=== PATIENT | female | born 1965 | race African-American/Black ===

== ENCOUNTER 2016-07-21 01:37 | Emergency (ER) | payer SELFPAY ==
[2016-07-21] MEDS ORDERED: ONDANSETRON HCL INJ/PF 4 MG/2 ML SDV PO ONE (02:44)
[2016-07-21] MEDS ORDERED: ONDANSETRON ODT 4 MG TAB (6 TAB/DSPK) PO PRN (02:54)
[2016-07-21] MEDS ORDERED: ONDANSETRON 4 MG TAB.RAPDIS ONE (02:54)
[2016-07-21 03:14] LABS: HEMATOCRIT 30.1 % (36.0-47.0); MEAN CORPUSCULAR HEMOGLOBIN 12.7 pg (27.0-33.4); MEAN CORPUSCULAR HGB CONC 25.7 g/dL (32.0-36.0); RED BLOOD COUNT 6.05 10^6/uL (3.72-5.28); RED CELL DISTRIBUTION WIDTH 25.1 % (11.5-14.0); WHITE BLOOD COUNT 16.2 10^3/uL (4.0-10.5)
[2016-07-21 03:22] LABS: ALANINE AMINOTRANSFERASE 25 U/L (9-52); ALBUMIN 4.5 g/dL (3.5-5.0); ALKALINE PHOSPHATASE 77 U/L (38-126); ANION GAP 15 (5-19); ASPARTATE AMINO TRANSFERASE 26 U/L (14-36); BILIRUBIN,TOTAL 0.5 mg/dL (0.2-1.3); BLOOD UREA NITROGEN 16 mg/dL (7-20); CALCIUM 10.1 mg/dL (8.4-10.2); CARBON DIOXIDE 24 mmol/L (22-30); CHLORIDE 98 mmol/L (98-107); CREATININE RESULT 1.05 mg/dL (0.52-1.25); GLUCOSE 122 mg/dL (75-110); LIPASE 61.8 U/L (23-300); POTASSIUM 3.9 mmol/L (3.6-5.0); SODIUM 137.3 mmol/L (137-145); TOTAL PROTEIN 8.6 g/dL (6.3-8.2)
[2016-07-21 03:36] LABS: MEAN CORPUSCULAR VOLUME 50 fl (80-97)
[2016-07-21 03:45] LABS: HEMOGLOBIN 7.7 g/dL (12.0-15.5)
[2016-07-21 03:49] LABS: BASOPHILS % (MANUAL) 0 % (0-2); EOSINOPHILS % (MANUAL) 2 % (0-6); LYMPHOCYTES % (MANUAL) 11 % (13-45); TOTAL CELLS COUNTED 100
[2016-07-21 03:52] LABS: ANISOCYTOSIS 3+; HYPOCHROMASIA 3+; MICROCYTOSIS 4+; OVALOCYTES 2+; POIKILOCYTOSIS 2+; POLYCHROMASIA 1+; SCHISTOCYTES SLIGHT; TEAR DROP CELLS 1+
[2016-07-21] MEDS ORDERED: ONDANSETRON HCL INJ/PF 4 MG/2 ML SDV IV ONE (04:31)
[2016-07-21] MEDS ORDERED: NORMAL SALINE 1000 ML 1,000 ML IV ONE (04:31)
[2016-07-21] MEDS ORDERED: MORPHINE SULFATE 10 MG/ML INJ IV ONE (04:31)
[2016-07-21] MEDS ORDERED: NORMAL SALINE 250 ML IV PRN ×2 (04:38)
--- NOTE | 2016-07-21 04:40 | ER Document Report ---
ED GI/ - General Chief Complaint: Abdominal Pain Stated Complaint: STOMACH PAIN,VOMITING Time seen by provider: 04:34 Notes: Patient is a 51-year-old female that comes emergency department for chief complaint of pain in her mid to left upper abdomen with 3 episodes of vomiting today. She states she started to have pain in her upper abdomen and then took 5 ibuprofen pills, states after that she started vomiting. She denies blood in her vomit, states she had a normal bowel movement with no blood or black in it. She does have a history of peptic ulcers, also has a history of anemia and blood transfusions. She denies any abdominal surgeries. She states she is a former tobacco smoker, she reports infrequent alcohol, she states she smokes occasional marijuana. TRAVEL OUTSIDE OF THE [place] IN LAST 30 DAYS: No COUNTRY TRAVELED TO/FROM: none - Related Data Allergies/Adverse Reactions: No Known Allergies Allergy (Verified 03/22/14 12:14) Past Medical History - General Information source: Patient - Social History Smoking Status: Former Smoker Chew tobacco use (# tins/day): No Frequency of alcohol use: Rare Drug Abuse: Marijuana Family History: Reviewed & Not Pertinent Patient has suicidal ideation: No Patient has homicidal ideation: No Neurological Medical History: Denies: Hx Seizures Renal/ Medical History: Denies: Hx Ectopic , Hx Kidney Stones, Hx Ovarian Cysts, Hx Peritoneal Dialysis, Hx Pelvic Inflammatory Disease Past Surgical History: Reports: Hx Section. Denies: Hx Hysterectomy - Immunizations Hx Diphtheria, Pertussis, Tetanus Vaccination: Yes Review of Systems - Review of Systems Constitutional: No symptoms reported EENT: No symptoms reported Cardiovascular: No symptoms reported Respiratory: No symptoms reported Gastrointestinal: See HPI Genitourinary: No symptoms reported Female Genitourinary: No symptoms reported Musculoskeletal: No symptoms reported Skin: No symptoms reported Hematologic/Lymphatic: No symptoms reported Neurological/Psychological: No symptoms reported Physical Exam - Vital signs Vitals: Temp Pulse Resp BP Pulse Ox 97.7 F 120 H 18 158/98 H 99 07/21/16 01:47 07/21/16 01:47 07/21/16 01:47 07/21/16 01:47 07/21/16 01:47 Interpretation: Normal - General General appearance: Appears well, Alert In distress: None - HEENT Head: Normocephalic, Atraumatic Eyes: Normal Pupils: PERRL - Respiratory Respiratory status: No respiratory distress Chest status: Nontender Breath sounds: Normal. No: Decreased air movement, Wheezing Chest palpation: Normal - Cardiovascular Rhythm: Regular, Tachycardia Heart sounds: Normal auscultation, S1 appreciated, S2 appreciated Murmur: No - Abdominal Inspection: Normal Distension: No distension Bowel sounds: Normal Tenderness: Tender - There is some tenderness in the left upper quadrant and mildly tender in the epigastric area - Back Back: Normal, Nontender. No: Tender - Extremities General upper extremity: Normal inspection, Nontender, Normal color, Normal ROM , Normal temperature General lower extremity: Normal inspection, Nontender, Normal color, Normal ROM , Normal temperature, Normal weight bearing. No: Lu's sign - Neurological Neuro grossly intact: Yes Cognition: Normal Orientation: AAOx4 Shena Coma Scale Eye Opening: Spontaneous Shena Coma Scale Verbal: Oriented Shena Coma Scale Motor: Obeys Commands Shena Coma Scale Total: 15 Speech: Normal Motor strength normal: LUE, RUE, LLE, RLE Sensory: Normal - Psychological Associated symptoms: Normal affect, Normal mood - Skin Skin Temperature: Warm Skin Moisture: Dry Skin Color: Normal Course - Re-evaluation Re-evalutation: Leukocytosis of greater than 16,000 with elevated neutrophils and no bandemia. Patient initially tachycardic but this resolved with IV fluids. Patient has some tenderness in the left upper quadrant and epigastric area on exam otherwise abdomen is soft benign, patient is actually sitting up, conversational , smiling. Patient is still complaining of pain and nausea however, this resolved after medications. CBC shows marked microcytic anemia, however this is comparable with prior, patient states this is chronic and has received transfusions for this in the past. After discussion patient will be transfused. Declines rectal exam, denies any hematemesis or hematochezia. Concern in patient's history of peptic ulcer disease with left upper quadrant and epigastric pain, patient will be medicated for this. On reevaluation patient denies any complaints. Patient's blood pressure is elevated, patient states she has been checking it at home routinely and the averages 120s over 80s, she does agree to monitor this. Urine is positive for cocaine, discussion with patient was performed, patient states understanding of the risk on a blood pressure and gastrointestinal system , and states she will not continue this especially in light of her current symptoms and situation. Patient denies any chest pain, headache, denies any current symptoms. 07/21/16 07:19 Vital signs rechecked and are significantly improved. Blood finished patient has taken PO, patient requesting to leave, agrees to return for discussed return precautions. - Vital Signs Vital signs: Temp Pulse Resp BP Pulse Ox 97.7 F 62 15 180/76 H 100 07/21/16 05:55 07/21/16 05:55 07/21/16 05:55 07/21/16 05:55 07/21/16 05:55 - Laboratory Result Diagrams: 07/21/16 02:30 07/21/16 02:30 Laboratory results interpreted by me: 07/21/16 07/21/16 07/21/16 02:30 02:30 04:10 WBC 16.2 H RBC 6.05 H Hgb 7.7 L Hct 30.1 L MCV 50 L MCH 12.7 L MCHC 25.7 L RDW 25.1 H Seg Neuts % (Manual) 82 H Lymphocytes % (Manual) 11 L Abs Neuts (Manual) 13.3 H Est GFR (Non-Af Amer) 56 L Glucose 122 H Total Protein 8.6 H Urine Blood Crossmatch See Detail 07/21/16 06:00 WBC RBC Hgb Hct MCV MCH MCHC RDW Seg Neuts % (Manual) Lymphocytes % (Manual) Abs Neuts (Manual) Est GFR (Non-Af Amer) Glucose Total Protein Urine Blood SMALL H Crossmatch Discharge - Discharge Clinical Impression: Upper abdominal pain Anemia Qualifiers: Anemia type: unspecified type Qualified Code(s): D64.9 - Anemia, unspecified Gastritis Qualifiers: Gastritis type: unspecified gastritis Chronicity: unspecified Gastritis bleeding: without bleeding Qualified Code(s): K29.70 - Gastritis, unspecified, without bleeding Condition: Stable Disposition: HOME, SELF-CARE Additional Instructions: Your workup and examination is concerning for gastritis with vomiting - please avoid anything that'll worsen the inflammation - do not take any over-the- counter anti-inflammatories such as ibuprofen, aspirin, BC powder, do not use any recreational drug, do not drink alcohol or smoke, do not eat spicy food or drink high levels of caffeine. Take the Carafate and omeprazole as directed, take Zofran if needed for nausea. Follow-up with primary care for additional treatment and also for monitoring of chronic anemia. Return the emergency department for any concerning or worsening symptoms including severe abdominal pain, vomiting blood, black stools, uncontrolled vomiting, or any other concerning symptoms. Prescriptions: Omeprazole 40 mg PO DAILY #60 capsule. Promethazine HCl [Phenergan 25 mg Tablet] 1 - 2 tab PO Q6H PRN #20 tablet PRN Reason: Sucralfate [Carafate 1 gm Tablet] 1 gm PO QID #40 tablet Forms: Elevated Blood Pressure Referrals: SANDRA WILSON MD [Primary Care Provider] - 07/24/16
[2016-07-21 06:23] LABS: APPEARANCE,URINE CLEAR; BILIRUBIN,URINE NEGATIVE (NEGATIVE); GLUCOSE, URINE NEGATIVE (NEGATIVE); KETONES,URINE NEGATIVE (NEGATIVE); LEUKOCYTE ESTERASE,URINE NEGATIVE (NEGATIVE); NITRITE,URINE NEGATIVE (NEGATIVE); PROTEIN,URINE NEGATIVE (NEGATIVE); URINE SPECIFIC GRAVITY 1.008; UROBILINOGEN,URINE NEGATIVE mg/dL (<2.0)
[2016-07-21 06:37] LABS: URINE BARBITURATES SCREEN NEGATIVE; URINE METHADONE SCREEN NEGATIVE; URINE OPIATES LOW UNCONFIRMED POSITIVE; URINE PHENCYCLIDINE SCREEN NEGATIVE
[2016-07-21] MEDS ORDERED: SUCRALFATE 1 GM TABLET PO ONE (07:14)
[2016-07-21] MEDS ORDERED: FAMOTIDINE 20 MG TABLET PO ONE (07:14)
[2016-07-21] MEDS ORDERED: OXYCODONE-ACETAMINOPHEN 5-325 MG TABLET PO ONE (07:14)
[2016-07-21 07:18] VITALS: BP 156/74
[2016-07-21 12:38] LABS: PATH REVIEW PATHOLOGIST REVIEWED
== END 2016-07-21 07:32 | disposition home or self-care (01) ==
LOC: ER 01:37
DX: K29.70 Gastritis, unspecified, without bleeding (principal); D50.9 Iron deficiency anemia, unspecified; D72.828 Other elevated white blood cell count; R11.2 Nausea with vomiting, unspecified; R10.13 Epigastric pain; R10.12 Left upper quadrant pain; R00.0 Tachycardia, unspecified; R03.0 Elevated blood-pressure reading, without diagnosis of hypertension; Z87.11 Personal history of peptic ulcer disease; Z87.891 Personal history of nicotine dependence
CPT/HCPCS: 99284; 96374; 96375; 86900; 86901; 36415; 36430; 86850; 83690; 84703; 85025; 80053; 81001; 80307; 86920; P9016; J2270; J2405; J7030

== ENCOUNTER 2018-02-25 03:35 | Emergency (ER) | payer SELFPAY ==
--- NOTE | 2018-02-25 04:57 | ER Document Report ---
HPI - HPI Pain Level: 5 Notes: Patient is a 52-year-old female who presents with chief complaint of sore throat times 1 day. Patient reports pain with swallowing but she is able to swallow her secretions without difficulty. Patient denies any fever, cough, congestion or any other symptoms. - REPRODUCTIVE Reproductive: DENIES: : Past Medical History - General Information source: Patient - Social History Smoking Status: Never Smoker Family History: Reviewed & Not Pertinent - Medical History Medical History: Negative Neurological Medical History: Denies: Hx Seizures Renal/ Medical History: Denies: Hx Ectopic , Hx Kidney Stones, Hx Ovarian Cysts, Hx Peritoneal Dialysis, Hx Pelvic Inflammatory Disease Surgical Hx: Negative Past Surgical History: Reports: Hx Section. Denies: Hx Hysterectomy - Immunizations Hx Diphtheria, Pertussis, Tetanus Vaccination: Yes Vertical Provider Document - CONSTITUTIONAL Notes: PHYSICAL EXAMINATION: GENERAL: Well-appearing, well-nourished and in no acute distress. HEAD: Atraumatic, normocephalic. EYES: Pupils equal round extraocular movements intact, conjunctiva are normal. ENT: Nares patent, mild erythema noted to oropharynx without exudates, no tonsillar swelling, uvula midline, no evidence of peritonsillar abscess. NECK: Normal range of motion LUNGS: No respiratory distress Musculoskeletal: Normal range of motion NEUROLOGICAL: Normal speech, normal gait. PSYCH: Normal mood, normal affect. SKIN: Warm, Dry, normal turgor, no rashes or lesions noted. - INFECTION CONTROL TRAVEL OUTSIDE OF THE [place] IN LAST 30 DAYS: No COUNTRY TRAVELED TO/FROM: none Course - Re-evaluation Re-evalutation: Rapid strep is negative. Patient given dose of IM dexamethasone for symptomatic relief. Patient instructed on using salt water gargles as well as alternating Tylenol and Motrin for the pain and inflammation. Patient will follow up with her primary care provider if not improving over the next 2-3 days. - Vital Signs Vital signs: Temp Pulse Resp BP Pulse Ox 98.6 F 93 14 138/77 H 97 02/25/18 03:46 02/25/18 03:46 02/25/18 03:46 02/25/18 03:46 02/25/18 03:46 Discharge - Discharge Clinical Impression: Sore throat Condition: Stable Disposition: HOME, SELF-CARE Additional Instructions: SORE THROAT: Sore throats may be caused by viruses, bacteria, or fungi. Most are due to a virus, and must get better on their own. Bacterial sore throats, particularly those due to "strep," need treatment with antibiotics. If an antibiotic is prescribed, be sure to take the medication for a full 10 days. Failure to take the antibiotic can result in complications such as rheumatic fever. Sometimes, an injection of antibiotics is given instead of pills or liquid. This single "shot" is equal in effectiveness to the oral medication. To relieve symptoms, take acetaminophen for pain. Sip clear liquids frequently, or eat popsicles or ice chips. Anesthetic sprays or lozenges may help. Make sure the air in the room is not too dry. Avoid using decongestants or antihistamines. Call the doctor if there is no improvement in two days, or if you have difficulty breathing, increasing throat pain, high fever, rash, or frequent vomiting. STEROID MEDICATION: You have been given a medicine of the cortisone/steroid class. This medication is used to control inflammation or allergy. It is usually only given for a short period of time, until the acute process subsides. There are usually no side effects from short-term use of cortisone-like medications. Some persons feel an increased sense of well-being and are not sleepy at bedtime. Long-term use of cortisone medications is best avoided, unless required for a severe condition. If your condition does not remit, or relapses after the course of corticosteroid medication, you should consult your physician. FOLLOW-UP CARE: If you have been referred to a physician for follow-up care, call the physician s office for an appointment as you were instructed or within the next two days. If you experience worsening or a significant change in your symptoms, notify the physician immediately or return to the Emergency Department at any time for re-evaluation. Your rapid strep today was negative. You were given a dose of Decadron which is a steroid the last in your system for 3 days to help with the inflammation and swelling. Please take ibuprofen 600 mg every 6 hours as needed for pain. Drink plenty of clear fluids. Rest. Follow-up with your primary care provider if not improving over the next 2-3 days. We are sending your throat swab for a culture, we will call you if there are any abnormalities. Referrals: OSANDRA JOSEPH MD [Primary Care Provider] - Follow up as needed
[2018-02-25] MEDS ORDERED: DEXAMETHASONE SOD PHOS INJ 10 MG/1 ML VIAL IM ONE (05:44)
[2018-02-25] MEDS ORDERED: HYDROCODONE/ACETAMINOPHEN 5-325 MG TABLET PO ONE (05:44)
[2018-02-25 06:19] VITALS: BP 142/92
== END 2018-02-25 06:19 | disposition home or self-care (01) ==
LOC: ER 03:35
DX: J02.9 Acute pharyngitis, unspecified (principal)
CPT/HCPCS: 99283; 96372; 87070; 87880; J1100

== ENCOUNTER 2019-07-04 04:21 | Emergency (ER) | payer SELFPAY ==
[2019-07-04 04:52] LABS: HEMATOCRIT 41.2 % (36.0-47.0); HEMOGLOBIN 13.5 g/dL (12.0-15.5); MEAN CORPUSCULAR HEMOGLOBIN 25.5 pg (27.0-33.4); MEAN CORPUSCULAR HGB CONC 32.8 g/dL (32.0-36.0); MEAN CORPUSCULAR VOLUME 78 fl (80-97); PLATELET COUNT 226 10^3/uL (150-450); RED CELL DISTRIBUTION WIDTH 19.2 % (11.5-14.0); WHITE BLOOD COUNT 8.1 10^3/uL (4.0-10.5)
[2019-07-04 05:05] LABS: ALBUMIN 4.8 g/dL (3.5-5.0); ALKALINE PHOSPHATASE 81 U/L (38-126); ANION GAP 15 (5-19); ASPARTATE AMINO TRANSFERASE 26 U/L (14-36); BILIRUBIN,DIRECT 0.3 mg/dL (0.0-0.4); BILIRUBIN,TOTAL 0.4 mg/dL (0.2-1.3); BLOOD UREA NITROGEN 11 mg/dL (7-20); CALCIUM 9.3 mg/dL (8.4-10.2); CARBON DIOXIDE 25 mmol/L (22-30); CHLORIDE 100 mmol/L (98-107); GLUCOSE 161 mg/dL (75-110); POTASSIUM 3.5 mmol/L (3.6-5.0)
[2019-07-04 05:17] LABS: ABSOLUTE LYMPHOCYTES# (MANUAL) 0.3 10^3/uL (0.5-4.7); ABSOLUTE MONOCYTES # (MANUAL) 0.1 10^3/uL (0.1-1.4); ANISOCYTOSIS 2+; BAND NEUTROPHILS % (MANUAL) 1 % (3-5); BASOPHILS % (MANUAL) 1 % (0-2); EOSINOPHILS % (MANUAL) 0 % (0-6); LYMPHOCYTES % (MANUAL) 4 % (13-45); MONOCYTES % (MANUAL) 1 % (3-13); SEGMENTED NEUTROPHILS % (MAN) 93 % (42-78); TOTAL CELLS COUNTED 100
[2019-07-04 05:18] LABS: PLATELET COMMENT ADEQUATE
[2019-07-04] MEDS ORDERED: ONDANSETRON HCL INJ/PF 4 MG/2 ML SDV IV ONE (07:03)
[2019-07-04] MEDS ORDERED: NORMAL SALINE 1000 ML 1,000 ML IV ONE (07:03)
[2019-07-04] MEDS ORDERED: RINGERS SOLUTION,LACTATED 1,000 ML IV ONE (07:27)
[2019-07-04] MEDS ORDERED: KETOROLAC TROMETHAMINE INJ/PF 30 MG/1 ML SDV IV ONE (08:06)
[2019-07-04] MEDS ORDERED: METOCLOPRAMIDE HCL INJ/PF 10 MG/2 ML SDV IV ONE (08:06)
[2019-07-04 08:10] LABS: APPEARANCE,URINE SLIGHTLY-CLOUDY; BILIRUBIN,URINE NEGATIVE (NEGATIVE); COLOR,URINE YELLOW; GLUCOSE, URINE NEGATIVE (NEGATIVE); KETONES,URINE TRACE mg/dL (NEGATIVE); LEUKOCYTE ESTERASE,URINE NEGATIVE (NEGATIVE); NITRITE,URINE NEGATIVE (NEGATIVE); PROTEIN,URINE 100 mg/dL (NEGATIVE); URINE SPECIFIC GRAVITY 1.041; UROBILINOGEN,URINE NEGATIVE mg/dL (<2.0)
--- NOTE | 2019-07-04 08:33 | RADIOLOGY REPORT (SQ) ---
EXAM DESCRIPTION: ACUTE ABDOMEN SERIES COMPLETED DATE/TIME: 07/04/2019 7:59 am REASON FOR STUDY: N,V abd pain COMPARISON: None. NUMBER OF VIEWS: Three views. TECHNIQUE: Frontal chest, supine abdomen and upright/decubitus abdomen radiographic images acquired. LIMITATIONS: None. FINDINGS: CHEST: Lungs clear of infiltrates. FREE AIR: None. No abnormal gas collections. BOWEL GAS PATTERN: Nonobstructive pattern. No dilated loops or air fluid levels. CALCIFICATIONS: No suspicious calcifications. HARDWARE: None in the abdomen. SOFT TISSUES: No gross mass or suggestion of organomegaly. BONES: No acute fracture. No worrisome bone lesions. OTHER: Multiple ovoid radiodensities overlie the abdomen and pelvis along the left paramidline, presu mably external to the patient. IMPRESSION: No evidence of intestinal obstruction or other acute intra-abdominal/pelvic process. TECHNICAL DOCUMENTATION: JOB ID: [id number] [employer]- All Rights Reserved Reading location - IP/workstation name: [email or web address]
[2019-07-04 10:13] VITALS: BP 152/87
--- NOTE | 2019-07-07 10:24 | ER Document Report ---
Entered by GAMAL TONY SCRIBE 07/04/19 0702 Acting as scribe for:MICHAELLE HAQUE MD ED General - General Chief Complaint: Nausea/Vomiting Stated Complaint: ABDOMINAL PAIN AND VOMITING Time Seen by Provider: 07/04/19 06:56 Primary Care Provider: SANDRA WILSON MD [Primary Care Provider] - Follow up as needed Information source: Patient Notes: 53 year old female presents to the emergency department complaining of abdominal pain and vomiting since yesterday. Patient describes the pain as all over her abdomen. Patient denies fevers and diarrhea. PCP: Dr. Sandra Wilson PMHx: Ectopic TRAVEL OUTSIDE OF THE [place] IN LAST 30 DAYS: No COUNTRY TRAVELED TO/FROM: none - Related Data Allergies/Adverse Reactions: No Known Allergies Allergy (Verified 07/04/19 04:30) Past Medical History - General Information source: Patient - Social History Smoking Status: Current Some Day Smoker Family History: Reviewed & Not Pertinent Patient has suicidal ideation: No Patient has homicidal ideation: No Past Surgical History: Reports: Hx Section - Immunizations Hx Diphtheria, Pertussis, Tetanus Vaccination: Yes Review of Systems - Review of Systems Constitutional: See HPI. denies: Fever EENT: No symptoms reported Cardiovascular: No symptoms reported Respiratory: No symptoms reported Gastrointestinal: See HPI, Abdominal pain, Nausea. denies: Diarrhea Genitourinary: No symptoms reported Female Genitourinary: No symptoms reported Musculoskeletal: No symptoms reported Skin: No symptoms reported Hematologic/Lymphatic: No symptoms reported Neurological/Psychological: No symptoms reported -: Yes All other systems reviewed and negative Physical Exam - Vital signs Vitals: Temp Pulse Resp BP Pulse Ox 99.5 F 92 20 173/97 H 97 07/04/19 04:32 07/04/19 04:32 07/04/19 04:32 07/04/19 04:32 07/04/19 04:32 - General General appearance: Appears well, Alert - HEENT Head: Normocephalic, Atraumatic Eyes: Normal Conjunctiva: Normal Cornea: Normal Extraocular movements intact: Yes Pupils: PERRL Tympanic membrane: Normal Pharynx: Normal Neck: Normal - Respiratory Respiratory status: No respiratory distress - Cardiovascular Rhythm: Tachycardia - Abdominal Inspection: Obese Bowel sounds: Hypoactive Tenderness: Tender - Diffusely mildly tender - Rectal Tenderness: No - Genitourinary External exam: Normal - Back Back: Normal - Extremities General upper extremity: Normal inspection General lower extremity: Normal inspection - Neurological Cognition: Normal Orientation: AAOx4 Speech: Normal - Psychological Associated symptoms: Normal affect, Normal mood - Skin Skin Temperature: Warm Skin Moisture: Dry Skin Color: Normal Course - Re-evaluation Re-evalutation: 07/04/19 09:41 The patient does continue to complain of abdominal pain. On reevaluation, I was able to demonstrate to the patient that because of her pain was actually coming from the anterior abdominal muscle wall. This was most likely due to the crunches she was doing when she was vomiting last night. She does not normally do exercises. The nauseousness is controlled. She recognized why she was having the pain and understands that it will just take time, but it is not an intra-abdominal problem. - Vital Signs Vital signs: Temp Pulse Resp BP Pulse Ox 99.3 F 80 18 165/98 H 100 07/04/19 06:50 07/04/19 06:50 07/04/19 06:50 07/04/19 06:50 07/04/19 06:50 - Laboratory Result Diagrams: 07/04/19 04:35 07/04/19 04:35 Laboratory results interpreted by me: 07/04/19 07/04/19 07/04/19 04:35 04:35 04:35 RBC 5.30 H MCV 78 L MCH 25.5 L RDW 19.2 H Seg Neuts % (Manual) 93 H Band Neutrophils % 1 L Lymphocytes % (Manual) 4 L Monocytes % (Manual) 1 L Abs Lymphs (Manual) 0.3 L Potassium 3.5 L Glucose 161 H Hemoglobin A1c % 6.5 H Total Protein 9.0 H Urine Protein Urine Ketones Urine Blood Urine Ascorbic Acid 07/04/19 07:36 RBC MCV MCH RDW Seg Neuts % (Manual) Band Neutrophils % Lymphocytes % (Manual) Monocytes % (Manual) Abs Lymphs (Manual) Potassium Glucose Hemoglobin A1c % Total Protein Urine Protein 100 H Urine Ketones TRACE H Urine Blood MODERATE H Urine Ascorbic Acid 40 H Discharge - Discharge Clinical Impression: Nausea and vomiting Qualifiers: Vomiting type: unspecified Vomiting Intractability: non-intractable Qualified Code(s): R11.2 - Nausea with vomiting, unspecified Abdominal pain Qualifiers: Abdominal location: generalized Qualified Code(s): R10.84 - Generalized abdominal pain Diabetes Qualifiers: Diabetes mellitus type: type 2 Diabetes mellitus extermination supervisor insulin use: without extermination supervisor use Condition: Stable Disposition: HOME, SELF-CARE Additional Instructions: Nausea or Vomiting, Nonspecific: Vomiting (or nausea without vomiting) can be caused by many different problems. Of course, it can mean that something's wrong with the stomach, such as "stomach flu," ulcers, or inflammation. But it can also be a symptom of a problem that has nothing to do with the stomach or intestines. Vomiting is common with severe headaches, earaches, and tonsillitis. We see it with pneumonia or heart attacks. Drugs can cause nausea. Many abdominal problems cause vomiting; for example, gallstones, kidney stones, pancreatitis, and intestinal obstruction (blocked bowels). In most cases, curing the vomiting depends on fixing the problem that caused it. For temporary relief, we may use an anti-nausea medicine. For home use, we can prescribe suppositories, chewable pills, pills that dissolve in the mouth, or liquid anti-nausea drugs. If the vomiting seems to be caused by a problem in the stomach, acid-suppressing drugs may be prescribed as well. It's important to avoid dehydration. Sip clear liquids. Take increasing amounts of fluid over the first 24 hours. Then start small amounts of bland f oods (such as dry toast, applesauce, mashed potato). Avoid aspirin, tobacco, and alcohol. Gradually resume your usual diet. If the vomiting worsens, if the problem that's making you vomit worsens, or if there's evidence of bleeding in the stomach (such as black, tarry stool, bloody or black vomit, or lightheadedness), you should return immediately. Call your doctor if you aren't improved in 24 to 36 hours. Diabetes: Your evaluation today suggest that you have borderline diabetes. Your hemoglobin A1c was 6.5 All diabetics should follow a diet designed to control the blood sugar. Overweight diabetics should exercise regularly and lose weight. If this is not sufficient to control the blood sugar, pills or insulin shots are necessary. Younger people who develop diabetes almost always require insulin daily. Home testing of blood sugars or urine sugar is required. Diabetic teaching is available to help you figure insulin doses and monitor the blood sugar. Call the physician if there is faintness, excess sleepiness, or very rapid breathing. Take medications as prescribed for nausea if needed. Drink plenty fluids get plenty of rest. Take Tylenol and ibuprofen for the abdominal wall muscle pain. Follow-up with a local primary care provider to discuss your elevated blood sugar and elevated hemoglobin A1c. RETURN TO THE EMERGENCY ROOM IF ANY NEW OR WORSENING SYMPTOMS. Prescriptions: Metoclopramide HCl [Reglan 10 mg Tablet] 10 mg PO ASDIR PRN #15 tablet PRN Reason: Referrals: SANDRA WILSON MD [Primary Care Provider] - Follow up as needed Scribe Attestation: 07/04/19 09:43 I personally performed the services described in the documentation, reviewed and edited the documentation which was dictated to the scribe in my presence, and it accurately records my words and actions. I personally performed the services described in the documentation, reviewed and edited the documentation which was dictated to the scribe in my presence, and it accurately records my words and actions.
== END 2019-07-04 10:10 | disposition home or self-care (01) ==
LOC: ER 04:21
DX: R11.2 Nausea with vomiting, unspecified (principal); R10.84 Generalized abdominal pain; E11.9 Type 2 diabetes mellitus without complications; E66.9 Obesity, unspecified; F17.200 Nicotine dependence, unspecified, uncomplicated
CPT/HCPCS: 99284; 96361; 96374; 96375; 36415; 83690; 85025; 80053; 81001; 83036; 74022; J1885; J2765; J2405; J7030; J7120